=== PATIENT | male | born 1985 | race Two or more races ===

== ENCOUNTER 2025-07-27 10:47 | Emergency (ER) | payer OTHER ==
[~2025-07-27] VITALS: Ht 190.5 cm; Wt 112.3 kg
[2025-07-27] MEDS: IBUPROFEN 600 MG TAB PO ONE (11:15)
--- NOTE | 2025-07-27 11:26 | ED.PDOC ---
History of Present Illness HPI Comments Mr. Humphreys is a 40-year-old male with no prior medical history, who presents today with chief complaint of right back pain. The patient states he was gardening last week when he fell and landed on a tree branch. Since this he sharp pain in his right back, intensity 9/10, aggravated by changing positions, associated with shortness of breath due to pain on deep inspiration, without relieving factors. Denies nausea, vomiting, fever, Due to persistence of pain he sought medical attention at the emergency department. Chief Complaint: Back Pain Time Seen by MD: 10:55 Allergies: Coded Allergies: NO KNOWN ALLERGIES (Unverified , 07/27/25) Information Source: Patient Mode of Arrival: Ambulatory Severity: Mild Timing: Days Duration: Intermittent Past Medical History PAST MEDICAL HISTORY: Denies Surgical History: Denies all surgeries Family History Family History: Reviewed,noncontributory to illness Social History Smoker: Non-Smoker Alcohol: Occasionally (Refrers he drinks 2 32 oz beers on the weekends) Drugs: Marijuana (Refers he has smoked 1 joint every weekend for the last 20 years) Lives In: Home Constitutional: denies: chills, diaphoresis, fatigue, fever, malaise, sweats, weakness, others EENTM: denies: blurred vision, double vision, ear bleeding, ear discharge, ear drainage, ear pain, ear ringing, eye pain, eye redness, hearing loss, mouth pain, mouth swelling, nasal discharge, nose bleeding, nose congestion, nose pain, photophobia, tearing, throat pain, throat swelling, voice changes, others Respiratory: denies: cough, hemoptysis, orthopnea, SOB at rest, shortness of breath, SOB with excertion, stridor, wheezing, others Cardiovascular: denies: chest pain, dizzy spells, diaphoresis, Dyspnea on exertion, edema, irregular heart beat, left arm pain, lightheadedness, palpitations, PND, syncope, others Gastrointestinal: denies: abdomen distended, abdominal pain, blood streaked bowels, constipated, diarrhea, dysphagia, difficulty swallowing, hematemesis, melena, nausea, poor appetite, poor fluid intake, rectal bleeding, rectal pain, vomiting, others Genitourinary: denies: burning, dysuria, flank pain, frequency, hematuria, incontinence, penile discharge, penile sore, pain, testicle pain, testicle swelling, urgency, others Neurological: denies: dizziness, fainting, headache, left sided numbness, left sided weakness, numbness, paresthesia, pre-existing deficit, right sided numbness, right sided weakness, seizure, speech problems, tingling, tremors, weakness, others Musculoskeletal: reports: back pain Integumetry: denies: bruises, change in color, change in hair/nails, dryness, laceration, lesions, lumps, rash, wounds, others Allergic/Immunocompromised: denies: Difficulty Healing, Frequent Infections, Hives, Itching, others Hematologic/Lymphatic: denies: anemia, blood clots, easy bleeding, easy bruising, swollen glands, others Endocrine: denies: excessive hunger, excessive sweating, excessive thirst, excessive urination, flushing, intolerance to cold, intolerance to heat, unexplained weight gain, unexplained weight loss, others Physical Exam General Appearance: Normal HEENT: Normal ENT Inspection Neck: Full Range of Motion, Non-Tender, Normal Inspection Respiratory: Inspiration (Decreased deep inspiration due to pain ), No Accessory Muscle Use, No Respiratory Distress, Normal Breath Sounds Cardiovascular: No Edema, No JVD, No Murmur, No Gallop, Normal Peripheral Pulses, Regular Rate/Rhythm Breast Exam: Deferred Gastrointestinal: No Organomegaly, Non Tender, No Pulsatile Mass, Normal Bowel Sounds Genitalia: Deferred Pelvic: Deferred Rectal: Deferred Extremities: Normal capillary refill, Normal inspection, Normal range of motion, Non-tender, No pedal edema Musculoskeletal : Location: Right Extremity Location: Back Apperance: Normal, Tenderness: Moderate Neurologic: No Motor Deficits, Normal Affect, Normal Mood, No Sensory Deficits Cerebellar Function: Normal Reflexes: Normal Skin: Normal Color Lymphatic: No Adenopathy Was a procedure done? Was a procedure done?: No Differential Dx Considerations may include: Rib fracture, Muscle strain, Contusion X-Ray, Labs, Meds, VS Vital Signs Date Time Temp Pulse Resp B/P (MAP) Pulse Ox O2 Delivery O2 Flow Rate FiO2 07/27/25 12:23 98.5 72 18 122/80 (94) 99 98.5 07/27/25 12:23 72 18 99 Room Air 07/27/25 11:15 98.5 07/27/25 10:50 99.3 70 18 119/87 100 99.3 Current Medications Medications (Trade) Dose Ordered Sig/Minda Route Start Time Stop Time Status Last Admin Ibuprofen (Motrin Tablet) 600 mg ONCE ONCE PO 07/27/25 11:15 07/27/25 11:26 DC 07/27/25 11:15 Time of 1ST Reevaluation: 13:00 Reevaluation 1ST: Improved Patient Education/Counseling: Diagnosis, Treatment Family Education/Counseling: Diagnosis, Treatment SEPSIS Sepsis Screen Date sepsis recognized/suspect: Jul 27, 2025 Time Sepsis recognized/suspect: 105 Recent Procedure: No On Antibiotic Therapy: No Respiratory Rate >20: No Heart Rate >90: No Temp<36 C (96.8 F) or >38.3 C: No SBP <90 or MAP <65 mmHG: No New Acute Mental Status Change: No Is the patient on CPAP, BIPAP,: No Physician Orders R Rib Xray (07/27/25 11:13) Vital Signs Date Time Temp Pulse Resp B/P (MAP) Pulse Ox O2 Delivery O2 Flow Rate FiO2 07/27/25 12:23 98.5 72 18 122/80 (94) 99 98.5 07/27/25 12:23 72 18 99 Room Air 07/27/25 11:15 98.5 07/27/25 10:50 99.3 70 18 119/87 100 99.3 Medications Medications Dose Ordered Sig/Minda Route Start Time Stop Time Status Last Admin Dose Admin Ibuprofen 600 mg ONCE ONCE PO 07/27/25 11:15 07/27/25 11:26 DC 07/27/25 11:15 Departure 1 Departure Time of Disposition: 13:40 (The patient presented with right-sided back pain mechanical trauma concerning for possible rib fracture, muscle strain, chest wall contusion. I ordered and independently interpreted following: Chest x-ray which shows displaced fracture of the 7th right rib. After over the Fernando patient is unlikely to have muscle strain or chest wall contusion. The patient is stable at this time. Workup so far is significant a fracture of the 7th right rib. He will be discharged) Impression: Primary Impression: Rib fracture Disposition: HOME / SELF CARE / HOMELESS Condition: Stable Additional Instructions: You presented today for right-sided back pain Your workup today shows a displaced fracture of the 7th right rib Your pain is most likely associated to this fracture Recommendations are to utilize anti-inflammatory medications such as acetaminophen or ibuprofen for pain and avoid bandaging region as this may worsen pain and symptoms. If your symptoms were to worsen for you have any other concerns please return to the emergency room. Discharged With: Self, Spouse Critical Care Note Critical Care Time?: No Stability Stability form required: EWA Last RESIDENT Jul 27, 2025 11:26
--- NOTE | 2025-07-27 12:19 | DVH ---
EXAMINATION: XY R RIB XRAY INDICATION: Right back pain COMPARISON: None TECHNIQUE: Frontal view of the chest and 3 views of the right ribs history FINDINGS/IMPRESSION: No focal consolidation, pleural effusion or significant pneumothorax. Normal cardiomediastinal silhou ette. There is a displaced right 7th rib fracture.
[2025-07-27 14:32] VITALS: BP 117/72; PULSE 67; RESP 16; TEMP 98.7; O2SAT 98
== END 2025-07-27 14:34 | disposition home or self-care (01) ==
LOC: ER 10:47
DX: S22.31XA Fracture of one rib, right side, initial encounter for closed fracture (principal); F17.200 Nicotine dependence, unspecified, uncomplicated; W18.39XA Other fall on same level, initial encounter; Y93.89 Activity, other specified; Y92.89 Other specified places as the place of occurrence of the external cause; Y99.8 Other external cause status
CPT/HCPCS: 71101